=== PATIENT | male | born 1970 | race Caucasian/White ===

== ENCOUNTER 2021-07-14 14:11 | Emergency (ER) | payer BC ==
[~2021-07-14] VITALS: Ht 170.2 cm; Wt 74.8 kg
[2021-07-14 14:27] LABS: BASOPHILS # (AUTO) 0.1 10^3/uL (0.0-0.1); BASOPHILS % (AUTO) 1 % (0-10); EOSINOPHILS # (AUTO) 0.1 10^3/uL (0.0-0.3); EOSINOPHILS % (AUTO) 1 % (0-10); HEMATOCRIT 45 % (40-54); HEMOGLOBIN 15.7 g/dL (13.3-17.7); LYMPHOCYTES # (AUTO) 2.1 10^3/uL (1.0-4.0); LYMPHOCYTES % (AUTO) 25 % (12-44); MEAN CORPUSCULAR HEMOGLOBIN 30 pg (25-34); MEAN CORPUSCULAR HGB CONC 35 g/dL (32-36); MEAN CORPUSCULAR VOLUME 87 fL (80-99); MONOCYTES # (AUTO) 0.6 10^3/uL (0.0-1.0); MONOCYTES % (AUTO) 7 % (0-12); NEUTROPHILS # (AUTO) 5.4 10^3/uL (1.8-7.8); NEUTROPHILS % (AUTO) 65 % (42-75); PLATELET COUNT 201 10^3/uL (130-400); WHITE BLOOD COUNT 8.3 10^3/uL (4.3-11.0)
--- NOTE | 2021-07-14 14:33 | Diagnostic Imaging Report ---
INDICATION: Chest pain. TIME OF EXAM: 2:25 p.m. COMPARISON: No prior studies are available for comparison. FINDINGS: The heart size is normal. The pulmonary vascularity is unremarkable. The lungs are clear. No infiltrate, effusion or pneumothorax is detected. IMPRESSION: No acute cardiopulmonary process is detected. Dictated by: Dictated on workstation # [id number]
--- NOTE | 2021-07-14 14:44 | ED General ---
General Chief Complaint: Chest Pain Stated Complaint: CHEST PAIN Source of Information: Patient History of Present Illness Date Seen by Provider: Jul 14, 2021 Time Seen by Provider: 14:13 Initial Comments 51-year-old male presenting with complaints of feeling short of breath and having chest tightness. He states this is been going on since at least Monday but he felt like it seemed to be worse today. He was at work and had to leave for lead to be brought to the emergency department. He could not relate anything that made the pain any worse. He denies having nausea, vomiting, fever, chills, chest trauma, ill exposures. He did used to smoke cigarettes heavily. He works at [employer] locally. He felt like his breathing was short and l olivier he had been "breathing suzanne air and smoking 2 packs of cigarettes". He denies any history of high blood pressure, asthma, chest pains. No known family history of cardiac disease Timing/Duration: 3-4 Days Severity: Moderate Modifying Factors: improves with Other (nothing seems to make it better or worse) Associated Systoms: Chest Pain (tightness), Cough; No Diaphoresis, No Fever/Chills, No Headaches, No Loss of Appetite, No Malaise, No Nausea/Vomiting, No Rash, No Seizure; Shortness of Air; No Syncope, No Weakness Allergies and Home Medications Allergies Coded Allergies: No Known Drug Allergies (Unverified , 07/14/21) Patient Home Medication List Home Medication List Reviewed: Yes Review of Systems Review of Systems Constitutional: No chills, No diaphoresis, No dizziness, No fever EENTM: no symptoms reported Respiratory: see HPI Cardiovascular: see HPI Gastrointestinal: No nausea, No vomiting Genitourinary: No dysuria Musculoskeletal: no symptoms reported Skin: No rash Psychiatric/Neurological: Anxiety; Denies Headache Hematologic/Lymphatic: Denies Blood Clots Past Nidjthw-Tjimtn-Lridze Hx Patient Social History Tobacco Use?: Yes Smoking Status: Former Smoker Substance use?: No Alcohol Use?: No Pt feels they are or have been: No Immunizations Up To Date First/Initial COVID19 Vaccinat: n/a Second COVID19 Vaccination Yadiel: n/a Third COVID19 Vaccination Date: n/a COVID19 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 oz. kg; BMI Method: General Appearance: WD/WN, Anxious HEENT: PERRL/EOMI, Pharynx Normal Neck: Full Range of Motion, Normal Inspection, Non Tender, Supple Respiratory: Chest Non Tender, Lungs Clear, Normal Breath Sounds, No Accessory Muscle Use, No Respiratory Distress Cardiovascular: Regular Rate, Rhythm, No Murmur, Normal Peripheral Pulses Gastrointestinal: Normal Bowel Sounds, No Pulsatile Mass, Non Tender, Soft Rectal: Deferred Extremity: Normal Capillary Refill, Normal Inspection, No Calf Tenderness, No Pedal Edema Neurologic/Psychiatric: Alert, Oriented x3, fire tower keeper II-XII Norm as Tested Skin: Normal Color, Warm/Dry Progress/Results/Core Measures Suspected Sepsis SIRS Temperature: Pulse: Respiratory Rate: Laboratory Tests 07/14/21 14:20: White Blood Count 8.3 Blood Pressure / Mean: Laboratory Tests 07/14/21 14:20: Creatinine 1.03, INR Comment 1.0, Platelet Count 201, Total Bilirubin 0.4 Results/Orders Lab Results Laboratory Tests Test 07/14/21 14:20 Range/Units White Blood Count 8.3 4.3-11.0 10^3/uL Red Blood Count 5.21 4.30-5.52 10^6/uL Hemoglobin 15.7 13.3-17.7 g/dL Hematocrit 45 40-54 % Mean Corpuscular Volume 87 80-99 fL Mean Corpuscular Hemoglobin 30 25-34 pg Mean Corpuscular Hemoglobin Concent 35 32-36 g/dL Red Cell Distribution Width 12.8 10.0-14.5 % Platelet Count 201 130-400 10^3/uL Mean Platelet Volume 12.0 9.0-12.2 fL Immature Granulocyte % (Auto) 0 % Neutrophils (%) (Auto) 65 42-75 % Lymphocytes (%) (Auto) 25 12-44 % Monocytes (%) (Auto) 7 0-12 % Eosinophils (%) (Auto) 1 0-10 % Basophils (%) (Auto) 1 0-10 % Neutrophils # (Auto) 5.4 1.8-7.8 10^3/uL Lymphocytes # (Auto) 2.1 1.0-4.0 10^3/uL Monocytes # (Auto) 0.6 0.0-1.0 10^3/uL Eosinophils # (Auto) 0.1 0.0-0.3 10^3/uL Basophils # (Auto) 0.1 0.0-0.1 10^3/uL Immature Granulocyte # (Auto) 0.0 0.0-0.1 10^3/uL Prothrombin Time 13.2 12.2-14.7 SEC INR Comment 1.0 0.8-1.4 Activated Partial Thromboplast Time 31 24-35 SEC Sodium Level 139 135-145 MMOL/L Potassium Level 3.9 3.6-5.0 MMOL/L Chloride Level 102 98-107 MMOL/L Carbon Dioxide Level 23 21-32 MMOL/L Anion Gap 14 5-14 MMOL/L Blood Urea Nitrogen 11 7-18 MG/DL Creatinine 1.03 0.60-1.30 MG/DL Estimat Glomerular Filtration Rate 88 BUN/Creatinine Ratio 11 Glucose Level 105 70-105 MG/DL Calcium Level 9.3 8.5-10.1 MG/DL Corrected Calcium 8.9 8.5-10.1 MG/DL Magnesium Level 1.9 1.6-2.4 MG/DL Total Bilirubin 0.4 0.1-1.0 MG/DL Aspartate Amino Transf (AST/SGOT) 18 5-34 U/L Alanine Aminotransferase (ALT/SGPT) 16 0-55 U/L Alkaline Phosphatase 62 40-136 U/L Myoglobin 39.5 10.0-92.0 NG/ML Troponin I < 0.30 <0.30 NG/ML Pro-B-Type Natriuretic Peptide 24.8 <75.0 PG/ML Total Protein 7.2 6.4-8.2 GM/DL Albumin 4.5 3.2-4.5 GM/DL Lipase 62 8-78 U/L My Orders Orders - ANIKA GONZALEZ MD Cbc With Automated Diff (07/14/21 14:14) Magnesium (07/14/21 14:14) Chest 1 View Ap/Pa Only (07/14/21 14:14) Ekg Tracing (07/14/21 14:14) Comprehensive Metabolic Panel (07/14/21 14:14) Myoglobin Serum (07/14/21 14:14) Protime With Inr (07/14/21 14:14) Partial Thromboplastin Time (07/14/21 14:14) O2 (07/14/21 14:14) Monitor-Rhythm Ecg Trace Only (07/14/21 14:14) Ed Iv/Invasive Line Start (07/14/21 14:14) Lipase (07/14/21 14:14) Troponin I Fs (07/14/21 14:14) Probnp Fs (07/14/21 14:14) Albuterol Inhaler (Albuterol) (07/14/21 16:22) Albuterol Inhaler (Albuterol) (07/14/21 16:23) Vital Signs/I&O 07/14/21 07/14/21 14:16 16:29 Temp 36.0 36.0 Pulse 88 81 Resp 22 16 B/P (MAP) 145/85 (105) 130/70 Pulse Ox 98 97 O2 Delivery Room Air Room Air Capillary Refill : Progress Note #1: Progress Note Obtain electrocardiogram, labs with cardiac enzymes, chest x-ray. Differential diagnosis includes myocardial infarction, anxiety, pneumonia, Covid, COPD, CHF Progress Note #2: Progress Note Electrocardiogram shows no acute coronary syndrome or MA. Chest x-ray is clear without acute process. Labs appear stable without acute significant abnormality. Cardiac enzymes are negative. Reassured patient and family about findings and results. Counseled that all of his test here had looked okay. Since he was feeling more short of breath and winded like he may be had been smoking or breathing in a suzanne environment will try an albuterol inhaler with a spacer. Also counseled to try and check with the clinic in case he needed pulmonary function testing with his history of being a smoker. It could be that he is having some early COPD or emphysema changes and the recent weather changes may have helped to trigger some of this. I also advised him that we could do a Covid test to look for that as a potential cause of his shortness of breath and he refused, stating that he did not feel like he was sick and so he did not feel like he needed that. ECG Initial ECG Impression Date: Jul 14, 2021 Initial ECG Impression Time: 14:25 Initial ECG Rate: 82 Initial ECG Rhythm: Normal Sinus Initial ECG Comparisson: No Previous ECG Available Comment Normal Sinus Rhythm with rate of 82 bpm. [place] interval of [address] elevation. QT interval of 341 ms and QTc interval of 399 ms. No prior tracing available for comparison. Diagnostic Imaging Diagonstic Imaging: Xray Comments NAME: AARTI FAJARDO JR [facility] REC#: [id number] PT STATUS: REG ER : 1970 PHYSICIAN: ANIKA GONZALEZ MD ADMIT DATE: 07/14/21/ER FS Draft Date of Exam:07/14/21 CHEST 1 VIEW AP/PA ONLY INDICATION: Chest pain. TIME OF EXAM: 2:25 p.m. COMPARISON: No prior studies are available for comparison. FINDINGS: The heart size is normal. The pulmonary vascularity is unremarkable. The lungs are clear. No infiltrate, effusion or pneumothorax is detected. IMPRESSION: No acute cardiopulmonary process is detected. Dictated on workstation # [id number] Dict: 07/14/21 1432 Trans: 07/14/21 1433 [id number] Interpreted by: MIO DEL RIO MD Electronically signed by: Reviewed: Reviewed by Me Departure Impression Primary Impression: Shortness of breath Additional Impressions: Chest tightness Hx of smoking Disposition: 01 HOME, SELF-CARE Condition: Stable Departure-Patient Inst. Decision time for Depature: 16:29 Referrals: MINDY WOODARD APRN (PCP) Primary Care Physician [facility] (Family) Primary Care Physician Patient Instructions: Chest Pain, Adult ED, How to Use a Metered Dose Inhaler ED, How to Use a Spacer, Shortness of Breath, Adult ED Add. Discharge Instructions: Use the albuterol inhaler with the spacer 2 puffs every 4-6 hours as needed for shortness of breath. Follow-up with the clinic to see about possible pulmonary function testing. If you have new symptoms or problems you could get rechecked otherwise again check with the clinic about your symptoms All discharge instructions reviewed with patient and/or family. Voiced understanding. Work/School Note: Work Release Form Date Seen in the Emergency Department: Jul 14, 2021 Return to Work: Jul 15, 2021 Restrictions: No Restrictions ANIKA GONZALEZ MD Jul 14, 2021 14:43
[2021-07-14 14:51] LABS: PROTHROMBIN TIME PATIENT 13.2 SEC (12.2-14.7)
[2021-07-14 14:57] LABS: ALBUMIN 4.5 GM/DL (3.2-4.5); BILIRUBIN,TOTAL 0.4 MG/DL (0.1-1.0); CALCIUM 9.3 MG/DL (8.5-10.1); CREATININE SERUM 1.03 MG/DL (0.60-1.30); MAGNESIUM 1.9 MG/DL (1.6-2.4); POTASSIUM 3.9 MMOL/L (3.6-5.0); TOTAL PROTEIN 7.2 GM/DL (6.4-8.2)
[2021-07-14] MEDS ORDERED: RT-ALBUTEROL HFA 8.5 GM INHALER IH STA (16:22)
[2021-07-14] MEDS ORDERED: RT-ALBUTEROL HFA 8.5 GM INHALER IH ONE (16:23)
[2021-07-14 16:29] VITALS: BP 130/70
== END 2021-07-14 16:32 | disposition home or self-care (01) ==
LOC: EDUNIT# 14:11 → ER FS 14:13
DX: R06.02 Shortness of breath (principal); R07.89 Other chest pain; Z87.891 Personal history of nicotine dependence
CPT/HCPCS: 36415; 71045; 80053; 83690; 83735; 83874; 83880; 84484; 85025; 85610; 85730; 93005; 93041

== ENCOUNTER → 2022-07-28 | Outpatient (CLI) | payer BC ==
[~2022-07-28] MED LIST: RT-ALBUTEROL SULF 2.5 MG/3 ML PRE-MIX VIAL INH ONE
== END ==
LOC: RT 12:37
PROVIDERS: ATTEND Nurse Practitioner Family
DX: R06.09 Other forms of dyspnea (principal)
CPT/HCPCS: 94060; 94726; 94729

== ENCOUNTER → 2022-08-24 | Outpatient (CLI) | payer BC ==
[2022-08-24 14:03] VITALS: BP 143/78
--- NOTE | 2022-08-24 15:26 | Cardiology Stress Test Report ---
Stress Test Report Date of Procedure/Referring: Date of Procedure: Aug 24, 2022 PCP Gemini Hatch Aprn Admitting Physician Admitting Physician: Attending Physician: Mirlande Carvajal Indications: CP Baseline Blood Pressure: Blood Pressure Systolic: 143 Blood Pressure Diastolic: 78 Baseline EKG: Baseline EKG: NSR Summary/Conclusion: Summary: In summary, the patient started exercising with a baseline heart rate, blood pressure and EKG mentioned above Patient was able to exercise for a total of 9 minutes on Italo protocol, METs 10.5 Maximum heart rate 142 Maximum blood pressure 171/65 Stress EKG, Minimal nondiagnostic changes Recovery EKG , Return to baseline Conclusion: 1. Good exercise tolerance for a total of 9 minutes on Italo protocol, 10.5 METs, achieving 84 percent of maximum expected heart rate 2. Minimal nondiagnostic EKG changes with exercise returned to baseline during recovery 3. No arrhythmia was noted Copy Copies To 1: [facility]/NISA COLLAZO MD Aug 24, 2022 15:26
== END ==
LOC: CARD 13:32
PROVIDERS: ATTEND Physician Assistant
DX: R07.9 Chest pain, unspecified (principal); R00.2 Palpitations
CPT/HCPCS: 93017